=== PATIENT | male | born 1965 | race Caucasian/White ===

== ENCOUNTER 2016-09-16 09:03 | Emergency (ER) | payer BC ==
--- NOTE | 2016-09-16 09:37 | ED ---
Abdominal Pain/Male - HPI Summary HPI Summary: Patient presents with RLQ pain for two days. He thinks he pulled a muscle while moving boxes at work. He had just returned to work two days ago after a 2 month absence due to having a AAA, with acute renal failure. He had a temperature of 102 last night but took Tylenol and it has improved. He has had 4 separate surgeries to repair his aorta, aortic valve, and descending aorta. He had acute renal failure due to the last surgery but has improved to the point that he has discontinued dialysis. He has pain with walking and certain movements. He denies N/V/D or constipation but admits he has chronic intermittent "belly aches ". He is urinating well, and his stool is chronically "dark". He denies CP, SOB , back pain, N/T in extremities. No edema or pallor. 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 Onset/Duration: Gradual Onset Timing: Intermittent Severity Initially: Mild Severity Currently: Severe Pain Intensity: 8 Location: Discrete At: RLQ Radiates: No Character: Sharp Aggravating Factor(s): Movement Alleviating Factor(s): Nothing Associated Signs And Symptoms: Positive: Fever - Allergies/Home Medications Allergies/Adverse Reactions: Allergies Allergy/AdvReac Type Severity Reaction Status Date / Time omnipaque 300 Allergy Mild itching x Uncoded 09/16/16 09:55 four days post Omnipaque 300 injection PMH/Surg Hx/FS Hx/Imm Hx Endocrine/Hematology History: Reports: Hx Anemia Denies: Hx Anticoagulant Therapy - off coumadin for 2 weeks, Hx Diabetes Cardiovascular History: Reports: Hx Aneurysm, Hx Angioplasty, Hx Cardiomegaly, Hx Hypertension, 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 Denies: Hx Congestive Heart Failure Respiratory History: Reports: Other Respiratory Problems/Disorders - cough x 3 mons History: Reports: Hx Acute Renal Failure, Hx Dialysis - history Denies: Hx Renal Disease Sensory History: Denies: Hx Contacts or Glasses Opthamlomology History: Denies: Hx Contacts or Glasses - Surgical History Surgery Procedure, Year, and Place: AORTIC VALVE REPLACEMENT Infectious Disease History: No Infectious Disease History: Denies: Traveled Outside the [place] in Last 30 Days - Family History Known Family History: Positive: None - Social History Occupation: Employed Full-time Lives: With Family Alcohol Use: Weekly Substance Use Type: Reports: None Smoking Status (MU): Never Smoked Tobacco Review of Systems Positive: Fever. Negative: Chills Negative: Chest Pain Negative: Shortness Of Breath Positive: Abdominal Pain. Negative: Vomiting, Diarrhea, Nausea Positive: no symptoms reported Negative: Myalgia Negative: Bruising Negative: Weakness, Paresthesia, Numbness All Other Systems Reviewed And Are Negative: Yes Physical Exam Triage Information Reviewed: Yes Vital Signs On Initial Exam: Initial Vitals Temp Pulse Resp BP Pulse Ox 99.1 F 76 17 143/59 99 09/16/16 09:05 09/16/16 09:05 09/16/16 09:05 09/16/16 09:05 09/16/16 09:05 Vital Signs Reviewed: Yes Appearance: Positive: Well-Appearing, No Pain Distress, Obese Skin: Positive: Warm, Skin Color Reflects Adequate Perfusion, Dry, Soft Head/Face: Positive: Normal Head/Face Inspection Eyes: Positive: EOMI, KARIS, Conjunctiva Clear ENT: Positive: Hearing grossly normal Neck: Positive: Supple, Nontender, No Lymphadenopathy Respiratory/Lung Sounds: Positive: Clear to Auscultation, Breath Sounds Present Cardiovascular: Positive: RRR - with an aortic murmur Abdomen Description: Positive: Soft, McBurney's Point Tenderness. Negative: Nontender - RLQ pain with 2/6 bruit over right iliac artery, CVA Tenderness (R) , CVA Tenderness (L), Distended, Guarding, Pulsatile Mass Bowel Sounds: Positive: Present Musculoskeletal: Positive: Strength/ROM Intact. Negative: Edema Left, Edema Right Neurological: Positive: Sensory/Motor Intact, Alert, Oriented to Person Place, Time, NV Bundle Intact Distally, Normal Gait Psychiatric: Positive: Affect/Mood Appropriate AVPU Assessment: Alert Diagnostics - Vital Signs Vital Signs Temp Pulse Resp BP Pulse Ox 09/16/16 09:13 99 F 76 17 143/59 98 09/16/16 09:05 99.1 F 76 17 143/59 99 - Laboratory Result Diagrams: 09/16/16 09:32 09/16/16 09:32 Lab Statement: Any lab studies that have been ordered have been reviewed, and results considered in the medical decision making process. - Ultrasound No standard instances Ultrasound Interpretation: Positive (See Comments) - 3.1 cm common iliac aneurysm Ultrasound Interpretation Completed By: Radiologist - EKG No standard instances Cardiac Rate: NL EKG Rhythm: Sinus Rhythm ST Segment: Normal Ectopy: None Abdominal Pain Fem Course/Dx - Course Course Of Treatment: I spoke with an associate of Dr. Mead, the patient's treating surgeon, and he recommended ED to ED transfer of the patient for evaluation. - Diagnoses Differential Diagnosis/HQI/PQRI: Abdominal Aortic Aneurysm, ACS, Appendicitis, Bowel Obstruction, Hepatitis, Ureteral Stone, Urinary Tract Infection Provider Diagnoses: Aneurysm of right common iliac artery - Provider Notifications Discussed Care Of Patient With: Dr. Rivers, ED attending; Dr. Sahu, vascular surgeon Instructed by Provider To: Transfer Reason For Transfer: Specialty or service not available at [facility]. Discharge - Discharge Plan Condition: Stable Disposition: TRANS HIGHER LVL OF CARE FAC Referrals: Rolando Velasco MD [Primary Care Provider] -
[2016-09-16 09:58] LABS: Hematocrit 27 % (42-52); Hemoglobin 8.8 g/dl (14.0-18.0); Mean Corpuscular HGB Conc 33 g/dl (31-36); Mean Corpuscular Hemoglobin 29 pg (27-31); Mean Corpuscular Volume 88 fL (80-94); Mean Platelet Volume 8 um3 (7.4-10.4); Red Blood Count 3.06 10^6/ul (4.0-5.4); Red Cell Distribution Width 15 % (10.5-15); White Blood Count 13.8 10^3/ul (3.5-10.8)
[2016-09-16 10:09] LABS: Albumin 3.4 g/dL (3.2-5.2); BUN/Creatinine Ratio 16.4 (8-20); C Reactive Protein 157.71 mg/L (< 5.00); Calcium 9.2 mg/dL (8.6-10.3); EGFR African American 43.8 (>60); Globulin 4.3 g/dL (2-4); Potassium 4.5 mmol/L (3.5-5.0); Total Bilirubin 0.7 mg/dL (0.2-1.0); Total Protein 7.7 g/dL (6.4-8.9)
[2016-09-16 10:13] LABS: Troponin I 0.04 ng/mL (<0.04)
[2016-09-16] MEDS ORDERED: NS 0.9% 1000 ML* 1,000 ML IV ONE (10:20)
--- NOTE | 2016-09-16 12:01 | RAD ---
HISTORY: Right lower quadrant pain, renal failure COMPARISONS: None TECHNIQUE: Multiple transverse and longitudinal ultrasound images were obtained of the abdomen using grayscale, color Doppler, and spectral Doppler imaging. FINDINGS: LIVER: The liver measures 24 centers in long axis. There are no focal hepatic parenchymal masses. There is normal hepatopedal flow of the portal vein on Doppler imaging. BILIARY TREE: There is no intrahepatic or extrahepatic biliary dilatation. The common duct measures 0.4 cm. GALLBLADDER: Sludge is noted with the gallbladder. There is no pericholecystic inflammatory change. PANCREAS: The head of the pancreas is unremarkable. The tail of the pancreas is not well visualized secondary to overlying bowel gas. SPLEEN: The spleen is at the upper limits of normal in size. The spleen measures 12.8 cm. RIGHT KIDNEY: The right kidney is normal in shape, size, contour, and echogenicity. There is mild caliectasis. There is no appreciable nephrolithiasis. The right kidney measures 13.8 x 6 x 6.6 cm. LEFT KIDNEY: There is mild caliectasis. There is no appreciable nephrolithiasis. The left kidney measures 9.8 x 4.8 x 4.5 cm. AORTA AND IVC: Atheromatous disease is noted. There is aneurysmal dilatation of the right common iliac artery measuring up to 3.1 cm. FLUID: There is a trace amount of fluid within the hepatorenal recess. OTHER FINDINGS: None. IMPRESSION: 1. LIMITED STUDY. 2. MILD BILATERAL CALIECTASIS WITHOUT APPRECIABLE NEPHROLITHIASIS. 3. HEPATOMEGALY. THE SPLEEN IS AT THE UPPER LIMITS OF NORMAL IN SIZE. 4. SLUDGE WITHIN THE GALLBLADDER. 5. 3.1 CM RIGHT COMMON ILIAC ARTERY ANEURYSM. 6. TRACE ASCITES
[2016-09-16 12:08] LABS: Urine Bilirubin Negative (Negative); Urine Glucose Negative (Negative); Urine Nitrite Negative (Negative)
[2016-09-16 13:33] VITALS: BP 120/59
== END 2016-09-16 14:23 | disposition short-term general hospital (02) ==
LOC: ED 09:03
DX: I72.3 Aneurysm of iliac artery (principal); R10.31 Right lower quadrant pain; R50.9 Fever, unspecified
CPT/HCPCS: 36415; 76700; 80053; 81003; 82150; 83605; 83690; 84484; 85025; 86140; 87040; 93005; 99283

== ENCOUNTER 2019-06-27 07:34 | Emergency (ER) | payer BC ==
--- NOTE | 2019-06-27 07:49 | ED ---
GI/ HPI - HPI Summary HPI Summary: Patient is a 53 y/o M arriving via ambulance to [facility] with a chief complaint of rectal bleeding onset 0430 this morning. He reports he woke up this morning and felt as if he was going to have diarrhea, but then he noticed mitchel rectal bleeding, with four episodes. He developed dizziness and back pain worsening with standing resulting in neck and shoulder heaviness. He denies any vomiting , CP, SOB, or abdominal pain. He is not in any pain now. He notes a history of AAA in 2009 with aortic valve replacement and multiple aortic grafts. He saw his surgeon last week who confirmed that he does not warrant need for surgery at this time, but he does have a small leak in the aortic arch with plan for surgery next year. He states he recently began taking a decongestant for five days, but he hasnt otherwise made any changes. He is on Xaretlo and baby ASA. He states he had his blood pressure medications this morning, which he attributes his hypotension to. No other abdominal surgeries. Past medical history also includes anemia, cardiomegaly, acute renal failure with dialysis, C diff. Nonsmoker, weekly EtOH, no substance use. Medications reviewed. Allergies noted. - History of Current Complaint Chief Complaint: EDGIBleed Time Seen by Provider: 06/27/19 07:36 Stated Complaint: RECTAL BLEED PER EMS Hx Obtained From: Patient Onset/Duration: Started Hours Ago, Still Present Timing: Constant Severity: Moderate Current Severity: Mild Pain Intensity: 0 Associated Signs and Symptoms: Positive: Other: - rectal bleeding, dizziness. Negative: Vomiting, Abdominal Pain, Chest Pain Aggravating Factor(s): Movement - standing causing worsening back pain Alleviating Factor(s): Nothing - Allergy/Home Medications Allergies/Adverse Reactions: Allergies Allergy/AdvReac Type Severity Reaction Status Date / Time No Known Allergies Allergy Verified 06/27/19 10:34 Home Medications: Home Medications Aspirin 81 mg CHEW TAB* [Aspirin Low Dose TAB*] 81 mg PO DAILY 02/15/14 [ History Confirmed 06/27/19] Escitalopram Oxalate [Lexapro] 20 mg PO BID 02/15/14 [History Confirmed 06/27/19 ] Metoprolol Succinate XL TAB* [Toprol XL TAB*] 100 mg PO BID 02/15/14 [History Confirmed 06/27/19] OLANzapine TAB* [ZyPREXA TAB*] 2.5 mg PO DAILY 02/15/14 [History Confirmed 06/26] Rivaroxaban [Xarelto] 20 mg PO DAILY 02/15/14 [History Confirmed 06/27/19] amLODIPine TAB* [Norvasc TAB*] 10 mg PO DAILY 02/15/14 [History Confirmed ] clonazePAM TAB(*) [KlonoPIN TAB(*)] 1 mg PO TID 02/15/14 [History Confirmed ] Dofetilide CAP* [Tikosyn CAP*] 500 mcg PO BID 06/27/19 [History Confirmed ] Lisinopril TAB* [Prinivil TAB*] 10 mg PO BID 06/27/19 [History Confirmed ] Torsemide TAB* [Demadex*] 20 mg PO DAILY 06/27/19 [History Confirmed 06/27/19] Umeclidin/Vilant 62.5 MDI(NF) [ANORO 62.5/25 Ellipta DEVICE (NF)] 1 inh INH DAILY 06/27/19 [History Confirmed 06/27/19] PMH/Surg Hx/FS Hx/Imm Hx Endocrine/Hematology History: Reports: Hx Anemia Denies: Hx Anticoagulant Therapy - off coumadin for 2 weeks, Hx Diabetes Cardiovascular History: Reports: Hx Aneurysm, Hx Angioplasty, Hx Cardiomegaly, Hx Hypertension, 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 AAA -GRAFT - [place] - 07/2016 - w/ PROPATEN GRAFT- SYNTHETIC POLYTETRAFLOUROETHYLENE & STITCHED WITH POLRNR & VICRYL SUTURES - NO METAL. LT WRIST -. LT KNEE -. IVC FILTER - [place]LL BLAS ( PT TO BRING CARD WITH HIM) - 1.5T ONLY - MAX SPAT GRADIENT - [address]/CM [facility] Infectious Disease History: Yes Infectious Disease History: Reports: Hx Clostridium Difficile Denies: Traveled Outside the [place] in Last 30 Days - Family History Known Family History: Negative: Hypertension, Diabetes - Social History Alcohol Use: Weekly Hx Substance Use: No Substance Use Type: Reports: None Hx Tobacco Use: No Smoking Status (MU): Never Smoked Tobacco Review of Systems Negative: Chest Pain Negative: Shortness Of Breath Positive: Other - rectal bleeding. Negative: Abdominal Pain, Vomiting Positive: Myalgia - back pain, neck/shoulder "heaviness" Neurological/Mental Status: Other - dizziness All Other Systems Reviewed And Are Negative: Yes Physical Exam - Summary Physical Exam Summary: Constitutional: Well-developed, Well-nourished, Alert. (-) Distressed Skin: Slightly pale, Warm, Dry HENT: Normocephalic; Atraumatic Eyes: Conjunctiva normal Neck: Musculoskeletal ROM normal neck. (-) JVD, (-) Stridor, (-) Tracheal deviation Cardio: Rhythm regular, rate normal, Heart sounds normal; Intact distal pulses; The pedal pulses are 2+ and symmetric. Radial pulses are 2+ and symmetric. (-) Murmur Pulmonary/Chest wall: Effort normal. (-) Respiratory distress, (-) Wheezes, (-) Rales Abd: Soft, (-) tenderness, (-) Distension, (-) Guarding, (-) Rebound, Old surgical scar noted Musculoskeletal: (-) Edema Lymph: (-) Cervical adenopathy Neuro: Alert, Oriented x3 Psych: Mood and affect Normal Rectal Exam: BRBPR, No active hemorrhage Triage Information Reviewed: Yes Vital Signs On Initial Exam: Initial Vitals Temp Pulse Resp BP Pulse Ox 97.5 F 78 17 80/57 95 06/27/19 07:41 06/27/19 07:41 06/27/19 07:41 06/27/19 07:41 06/27/19 07:41 Vital Signs Reviewed: Yes Procedures - Sedation Patient Received Moderate/Deep Sedation with Procedure: No Diagnostics - Vital Signs Vital Signs Temp Pulse Resp BP Pulse Ox 06/27/19 07:41 97.5 F 78 17 80/57 95 - Laboratory Result Diagrams: 06/27/19 08:04 06/27/19 08:04 Lab Statement: Any lab studies that have been ordered have been reviewed, and results considered in the medical decision making process. - CT Chest/Abd/Pel CTA CT Interpretation Completed By: Radiologist Summary of CT Findings: Impression: 1. The patient has had extensive vascular surgery since his most recent CT imaging and 2014 and 2013. If the patient is experiencing acute symptoms including chest or abdominal pain, prompt vascular surgical evaluation is advised. 2. There is either recurrence of thoracic aortic dissection or an active endoleak with interval widening of the thoracic aortic aneurysm and enlargement of the false lumen relative to the most recent CTA of the chest dated January 15, 2015. 3. There has been interval widening of the lower thoracic abdominal aneurysm now measuring up to 6.8 cm in width compared to 5.[address] imaging. 4. Relative to the most recent CT the abdomen and pelvis which is dated December 07, 2013, there has been development of dissection involving the left iliac arteries as well as interval widening of the left common iliac artery now measuring 4.4 cm in maximum width, increased from 3 cm [address] prior [address] examination. 5. There is no CT evidence of active GI bleed. 6. There are additional chronic and degenerative changes described in the body the report unlikely to be related to the patient's acute presentation. Dr. Solo has reviewed this report. - EKG 0812 Cardiac Rate: NL - 61 BPM EKG Rhythm: Sinus Rhythm EKG Comparison: Other - Some T wave changes from 09/16/16. Summary of EKG Findings: An EKG at 0812 reveals sinus rhythm at rate of [address]-T wave changes in V2-V6 and aVL. T wave changes compared to 09/16/16. Dr. Solo has reviewed and interpreted this EKG. Re-Evaluation - Re-Evaluation First Eval Re-Evaluation Time: 13:20 Comment: All results discussed with the patient. Recommended admission. Patient declines. Advised PCP/vascular follow up. Patient understands risks and benefits for leaving AMA. GIGU Course/Dx - Course Course Of Treatment: Patient is a 53 y/o M with AAA in 2009 with subsequent multiple aortic grafts and aortic valve replacement, presenting with four episodes of bright red blood per rectum onset around 0430 this morning with dizziness. Worsening back pain, neck/shoulder heaviness with standing. No abdominal pain, CP, SOB, or vomiting. Takes Xarelto, baby ASA. History of HTN, anemia, C diff. Patient appears slightly pale on physical. Old surgical scar noted on the abdomen. BRBPR without active hemorrhage on rectal exam. Patient placed on telemetry monitoring. IV access obtained. Patient received fluids. Blood work reveals INR 1.68, BUN 40, creatinine 1.92, CRP 26.05, total protein 5.9. Stool occult blood positive. An EKG at 0812 reveals sinus rhythm at rate of 61 BPM, [address]-T wave changes in V2-V6 and aVL, T wave changes compared to . Chest/Abd/Pel CTA is negative for GI bleed but shows vascular surgery changes from prior CT in 2014; either recurrence of thoracic aortic dissection or an active endoleak with interval widening of the thoracic aortic aneurysm and enlargement of the false lumen relative to the most recent CTA of the chest dated January 15, 2015; interval widening of lower thoracic abdominal aneurysm at 6.8 cm in width from 5.1 cm; development of dissection involving the left iliac arteries as well as interval widening of the left common iliac artery now measuring 4.4 cm in maximum width increased from [address] Epstein (CT surgeon in [place]). Reviewed CT. No apparent new vascular changes. Recommend holding Xarelto for 2-3 days. If patient declines admission, should follow up with CT surgery in next several days. All results discussed with patient. Patient is safe for discharge. Patient is advised to follow up with his vascular surgeon or PCP in 2-3 days. Advised to stop Xarelto for three days. Return precautions given. Patient agreeable with plan. - Diagnoses Provider Diagnoses: Rectal bleeding - Physician Notifications Discussed Care Of Patient With: Sandeep Epstein MD - CT surgery, [place] Time Discussed With Above Provider: 13:00 Instructed by Provider To: Other - Discussed with Dr. Epstein (CT surgeon in [place]). Reviewed CT. No apparent new vascular changes. Recommend holding Xarelto for 2-3 days. If patient declines admission, should follow up with CT surgery in next several days. Discharge ED - Sign-Out/Discharge Documenting (check all that apply): Patient Departure - Patient leaving AMA. - Discharge Plan Condition: Stable Disposition: AGAINST MEDICAL ADVICE Patient Education Materials: Rectal Bleeding (ED) Referrals: Rolando Velasco MD [Primary Care Provider] - 3 Days Additional Instructions: Stop Xarelto for next three days. Follow up with your primary care provider or CT surgeon as soon as possible. Return to the emergency department for any new or worsening symptoms. - Billing Disposition and Condition Condition: STABLE Disposition: Against Medical Advice - Attestation Statements Document Initiated by Kristofer: Yes Documenting Scribe: Lois Nevarez Provider For Whom Kristofer is Documenting (Include Credential): Jama Solo DO Scribaggie Attestation: ILois scribed for Jama Solo DO on 06/27/19 at 1503. Scribe Documentation Reviewed: Yes Provider Attestation: The documentation as recorded by the Lois conway accurately reflects the service I personally performed and the decisions made by me, Jama Solo DO Status of Scrrai Document: Viewed
[2019-06-27] MEDS ORDERED: NS 0.9% 1000 ML** 1,000 ML IV ONE (07:58)
[2019-06-27 08:21] LABS: ABS Basophils 0.1 10^3/ul (0-0.2); ABS Lymphocytes 0.6 10^3/ul (1.0-4.8); ABS Monocytes 0.6 10^3/ul (0-0.8); ABS Neutrophils 7.4 10^3/ul (1.5-7.7); Eosinophil % 0.4 %; Hematocrit 42 % (42-52); Mean Corpuscular HGB Conc 34 g/dL (31-36); Mean Corpuscular Hemoglobin 31 pg (27-31); Mean Corpuscular Volume 91 fL (80-94); Mean Platelet Volume 8.1 fL (7.4-10.4); Platelet Count 198 10^3/uL (150-450); Red Blood Count 4.55 10^6 /uL (4.18-5.48); Red Cell Distribution Width 14 % (10-15); White Blood Count 8.7 10^3/uL (3.5-10.8)
[2019-06-27 08:31] LABS: Activated Partial Thrombo Time 37.4 seconds (26.0-38.0); INR 1.68 (0.82-1.09)
[2019-06-27 08:37] LABS: Albumin 3.4 g/dL (3.2-5.2); Albumin/Globulin Ratio 1.4 (1-3); BUN/Creatinine Ratio 20.8 (8-20); Calcium 8.4 mg/dL (8.6-10.3); EGFR African American 44.6 (>60); EGFR Non-African American 36.8 (>60); Globulin 2.5 g/dL (2-4); Potassium 4.8 mmol/L (3.5-5.0); Total Bilirubin 0.4 mg/dL (0.2-1.0); Total Protein 5.9 g/dL (6.4-8.9)
[2019-06-27 08:40] LABS: Troponin I 0.01 ng/mL (<0.03)
[2019-06-27 09:37] LABS: C Reactive Protein 26.05 mg/L (<8.01)
[2019-06-27] MEDS ORDERED: Iodixanol* (CONTRAST) 320 MG/ML 100 ML SDV IV ONE (10:00)
[2019-06-27 13:55] VITALS: BP 104/63
== END 2019-06-27 13:57 | disposition left against medical advice (07) ==
LOC: ED 07:34
DX: K62.5 Hemorrhage of anus and rectum (principal); M54.9 Dorsalgia, unspecified; I10 Essential (primary) hypertension; Z95.4 Presence of other heart-valve replacement; N17.9 Acute kidney failure, unspecified; Z99.2 Dependence on renal dialysis; R42 Dizziness and giddiness; R94.31 Abnormal electrocardiogram [ECG] [EKG]; Z79.899 Other long term (current) drug therapy; Z79.82 Long term (current) use of aspirin; Z79.01 Long term (current) use of anticoagulants
CPT/HCPCS: 36415; 71275; 74174; 80053; 82270; 83605; 84484; 85025; 85610; 85652; 85730; 86140; 93005; 99284; Q9967

== ENCOUNTER 2023-04-12 12:08 | Inpatient (IN) ==
[2023-04-12] MEDS ORDERED: NS 0.9% 500 ml BAG 500 ML IV ONE ×2 (12:52→15:04)
[2023-04-12 13:17] LABS: ABS Basophils 0.1 10^3/uL (0.0-0.1); ABS Lymphocytes 1.2 10^3/uL (1.0-4.8); ABS Monocytes 0.9 10^3/uL (0.0-1.1); ABS Neutrophils 7.1 10^3/uL (1.5-7.6); ABS Nucleated RBC 0.01 10^3/ul; Eosinophil % 0.5 %; Hematocrit 36.5 % (38-53); Hemoglobin 11.7 g/dL (13.2-16.3); Lymphocyte % 12.5 %; Mean Corpuscular Hemoglobin 25.8 pg (27-33); Mean Corpuscular Hgb Conc 32.1 g/dL (31-36); Mean Corpuscular Volume 80.5 fL (80-97); Mean Platelet Volume 8.5 fL (7.5-11.2); Nucleated Red Blood Cells % 0.1 %/100WBC (0.0-0.8); Platelet Count 195 10^3/uL (150-450); Red Blood Count 4.53 10^6/uL (4.06-5.63); Red Cell Distribution Width 17.4 % (12-17); White Blood Count 9.3 10^3/uL (3.6-10.2)
[2023-04-12 13:36] LABS: Albumin 3.9 g/dL (3.2-5.2); Albumin/Globulin Ratio 1.4 (1-3); C Reactive Protein 12.66 mg/L (<8.01); Calcium 8.5 mg/dL (8.6-10.3); Creatinine, Serum 1.73 mg/dL (0.67-1.17); Globulin 2.8 g/dL (2-4); Potassium 5.1 mmol/L (3.5-5.0); Total Bilirubin 0.7 mg/dL (0.2-1.0); Total Protein 6.7 g/dL (6.4-8.9); eGFR CKD-EPI 45.5 (>60)
[2023-04-12] MEDS ORDERED: Iodixanol (CONTRAST) 320 MG/ML 100 ML SDV IV ONE (13:46)
[2023-04-12 14:25] LABS: Activated Partial Thrombo Time 24.1 seconds (26.0-38.0); INR 1.27 (0.83-1.13)
[2023-04-12] MEDS ORDERED: Prothrombin Complex Conc. DOSE = Units Factor IX (nine) IV SLOW PU ONE ×2 (14:28→15:00)
[2023-04-12 15:23] LABS: Hematocrit 33.5 % (38-53); Hemoglobin 10.8 g/dL (13.2-16.3)
[2023-04-12 22:30] LABS: Hematocrit 29.6 % (38-53); Hemoglobin 9.6 g/dL (13.2-16.3); Mean Corpuscular Hgb Conc 32.3 g/dL (31-36); Mean Corpuscular Volume 80.4 fL (80-97); Mean Platelet Volume 8.2 fL (7.5-11.2); Platelet Count 141 10^3/uL (150-450); Red Blood Count 3.68 10^6/uL (4.06-5.63); Red Cell Distribution Width 17.1 % (12-17); White Blood Count 8.8 10^3/uL (3.6-10.2)
[2023-04-12] MEDS: Fluticasone NASAL SPRAY 50MCG 16 gm SPRAY BTL INTRANASAL SCH (22:33)
[2023-04-12] MEDS ORDERED: Lactated Ringers 1000 ml BAG 1,000 ML IV SCH (23:45)
[2023-04-13 05:38] LABS: ABS Basophils 0.1 10^3/uL (0.0-0.1); ABS Eosinophils 0.1 10^3/uL (0.0-0.5); ABS Lymphocytes 0.9 10^3/uL (1.0-4.8); ABS Monocytes 0.6 10^3/uL (0.0-1.1); ABS Neutrophils 5.8 10^3/uL (1.5-7.6); Eosinophil % 0.7 %; Hematocrit 30.4 % (38-53); Hemoglobin 9.9 g/dL (13.2-16.3); Lymphocyte % 12.2 %; Mean Corpuscular Hemoglobin 26.2 pg (27-33); Mean Corpuscular Hgb Conc 32.5 g/dL (31-36); Mean Corpuscular Volume 80.6 fL (80-97); Mean Platelet Volume 8.3 fL (7.5-11.2); Platelet Count 127 10^3/uL (150-450); Red Blood Count 3.77 10^6/uL (4.06-5.63); Red Cell Distribution Width 16.9 % (12-17); White Blood Count 7.5 10^3/uL (3.6-10.2)
[2023-04-13 05:54] LABS: Calcium 8.1 mg/dL (8.6-10.3); Creatinine, Serum 1.41 mg/dL (0.67-1.17); Magnesium 1.9 mg/dL (1.9-2.7); Phosphorus 3.4 mg/dL (2.5-5.0); Potassium 4.6 mmol/L (3.5-5.0); eGFR CKD-EPI 58.1 (>60)
[2023-04-13] MEDS: CMCS:FLUTICAS/UMECLI/VILANT 200-62.5-25 MDI (NF) INH SCH (07:58)
[2023-04-13] MEDS ORDERED: PEG 3000 GI LAVAGE 1 GALLON PO ONE ×2 (16:30→17:00)
[2023-04-13] MEDS: Fluticasone NASAL SPRAY 50MCG 16 gm SPRAY BTL INTRANASAL SCH (20:24)
[2023-04-14 04:25] LABS: ABS Basophils 0.1 10^3/uL (0.0-0.1); ABS Lymphocytes 0.7 10^3/uL (1.0-4.8); ABS Monocytes 0.8 10^3/uL (0.0-1.1); ABS Neutrophils 4.9 10^3/uL (1.5-7.6); Eosinophil % 0.6 %; Hematocrit 26.3 % (38-53); Hemoglobin 8.7 g/dL (13.2-16.3); Lymphocyte % 10.5 %; Mean Corpuscular Hemoglobin 26.6 pg (27-33); Mean Corpuscular Hgb Conc 33.1 g/dL (31-36); Mean Corpuscular Volume 80.4 fL (80-97); Mean Platelet Volume 8.5 fL (7.5-11.2); Nucleated Red Blood Cells % 0.1 %/100WBC (0.0-0.8); Platelet Count 112 10^3/uL (150-450); Red Blood Count 3.27 10^6/uL (4.06-5.63); White Blood Count 6.4 10^3/uL (3.6-10.2)
[2023-04-14 04:43] LABS: Creatinine, Serum 1.38 mg/dL (0.67-1.17); Magnesium 1.9 mg/dL (1.9-2.7); Potassium 4.1 mmol/L (3.5-5.0); eGFR CKD-EPI 59.6 (>60)
[2023-04-14] MEDS ORDERED: Magnesium Sulfate IV 1GM/100ML 1 GM/100 ML BAG IV ONE (06:36)
[2023-04-14] MEDS ORDERED: PEG 3000 GI LAVAGE 1 GALLON PO ONE (07:00)
[2023-04-14] MEDS: CMCS:FLUTICAS/UMECLI/VILANT 200-62.5-25 MDI (NF) INH SCH (07:49)
[2023-04-14] MEDS ORDERED: Lidocaine 2% PF 5 ML VIAL ONE (12:47)
[2023-04-14] MEDS: Fluticasone NASAL SPRAY 50MCG 16 gm SPRAY BTL INTRANASAL SCH (20:30)
[2023-04-15 05:10] LABS: ABS Eosinophils 0.1 10^3/uL (0.0-0.5); ABS Lymphocytes 0.7 10^3/uL (1.0-4.8); ABS Monocytes 0.8 10^3/uL (0.0-1.1); ABS Neutrophils 4.6 10^3/uL (1.5-7.6); Eosinophil % 0.9 %; Hematocrit 26.2 % (38-53); Hemoglobin 8.5 g/dL (13.2-16.3); Lymphocyte % 11.6 %; Mean Corpuscular Hemoglobin 26.2 pg (27-33); Mean Corpuscular Hgb Conc 32.3 g/dL (31-36); Mean Corpuscular Volume 81.3 fL (80-97); Mean Platelet Volume 8.6 fL (7.5-11.2); Platelet Count 124 10^3/uL (150-450); Red Blood Count 3.23 10^6/uL (4.06-5.63); Red Cell Distribution Width 17.4 % (12-17); White Blood Count 6.2 10^3/uL (3.6-10.2)
[2023-04-15 05:26] LABS: Calcium 8.4 mg/dL (8.6-10.3); Creatinine, Serum 1.46 mg/dL (0.67-1.17); Potassium 4.1 mmol/L (3.5-5.0); eGFR CKD-EPI 55.7 (>60)
[2023-04-15] MEDS: CMCS:FLUTICAS/UMECLI/VILANT 200-62.5-25 MDI (NF) INH SCH (07:47)
[2023-04-15 16:05] VITALS: BP 89/56
== END 2023-04-15 17:40 | disposition home or self-care (01) | DRG 254 ==
LOC: ED 12:08 → EDHOLD 16:31 → ICU 17:20
PROVIDERS: ADMIT Student in an Organized Health Care Education/Training Program; ATTEND Student in an Organized Health Care Education/Training Program